=== PATIENT | female | born 1990 | race Caucasian/White ===

== ENCOUNTER → 2024-06-05 | Outpatient (CLI) | payer OTHER, SELFPAY ==
[2024-06-07 07:07] LABS: Chlamydia By Nucleic Acid AMP Negative (Negative); Gonococcus By Nucleic Acid AMP Negative (Negative)
[2024-06-08 10:08] LABS: HPV APTIMA, High Risk Negative (Negative)
== END | disposition home or self-care (01) ==
PROVIDERS: Visit Provider Nurse Practitioner Women's Health
DX: Z12.4 Encounter for screening for malignant neoplasm of cervix (principal); Z11.3 Encounter for screening for infections with a predominantly sexual mode of transmission; Z11.8 Encounter for screening for other infectious and parasitic diseases
CPT/HCPCS: 87491; 87591; 87624; 88175; G0145

== ENCOUNTER 2024-08-01 09:34 | Day surgery (SDC) | payer OTHER, SELFPAY ==
[2024-07-26 14:05] LABS: Hematocrit 39.3 % (37-47); Mean Corp Hgb Conc 33.1 g/dL (32-36); Mean Corpuscular Hgb 26.5 pg (27.0-32.0); Mean Platelet Vol. 11.1 fl (6.2-12.0); Platelet Count 429 K/mm3 (150-450); RBC Distribution Width CV 13.2 % (11.6-14.6); RBC Distribution Width SD 38.1 fl (35.1-43.9); Red Blood Count 4.91 M/mm3 (4.2-5.4); White Blood Count 10.4 K/mm3 (4.4-11.0)
[2024-08-01] VITALS (9 sets, daily range): BP systolic 116–132; BP diastolic 71–88; PULSE 60–80; RESP 16–18; TEMP 36.6–36.8; O2SAT 99–100; BMI 27.9
[2024-08-01 10:06] LABS: Internal QC Validated? YES +Cl - CLEAR BKGD; Pregnancy, Urine Negative Negative
[2024-08-01] MEDS: Lactated Ringers 1,000 ML 15 ML IV (10:18)
--- NOTE | 2024-08-01 10:33 | HP.PCM_ITS ---
History and Physical Date of Admission: 08/01/24 Intake Vital Signs 06/05/2508:43 07/10/2510:29 07/10/2510:30 Height 5 ft 5 in 5 ft 5 in 5 ft 5 in Weight: 174 lb 171 lb 2 oz BMI 28.9 28.5 BP 132/80 H 140/74 H Intake Visit Reasons: Consult for BS Fuel Cell Designer Required: No Is patient in pain?: No Allergies No Known Allergies Allergy (Verified 07/10/24 11:29) Post menopausal: No Patient : No : No PFSH Surgical History S/P appendectomy Status post wisdom tooth extraction Family History Father Myocardial infarction, Onset Age: 50Mother Hypertension Social History Smoking Status: Never smoker alcohol intake: current alcohol intake frequency: a few times a month Alcohol type: beer and wine substance use type: does not use what type of physical activity do you participate in: weight training frequency: 5-6 times per week HPI Consult for BS Details: GRAY TRAN is a 34 year old G0 who presents for discussion about tubal ligation. She states that she does not have any desire to have children and she is tired of taking control. She denies medical problems and has had only one surgery in her abdomen, a laparoscopic appendectomy when she was in 6th grade. History 0 Elective abortions Hx Para Spontaneous abortions Hx # Term Pregnancies Ectopic pregnancies Hx # Pregnancies Multiple births # of living children ROS Const ROS Unobtainable: All systems reviewed & are unremarkable except as noted in H Resp Resp: Reports system reviewed and no additional complaints, except as documented; Denies cough GI GI: Reports as per HPI Psych Psych: Reports system reviewed and no additional complaints, except as document ed Exam Const General: cooperative, healthy appearing, comfortable and no acute distress Resp Effort & Inspection: normal respiratory effort Skin General: no rashes or lesions noted Psych Appearance: grossly normal Speech and Movement: speech and movement normal Coding Level of Care Code Off vis,est,level 4 Diagnoses Sterilization consult Z30.09 Assessment and Plan Assessment and Plan (1) Sterilization consult: Status: Acute Plan: After discussing the patient's diagnosis and treatment plan options, patient wishes to proceed with surgical management. I have discussed with the patient the risks, benefits, and alternatives of the procedure which include but are not limited to risks of anesthesia, bleeding, infection, possible damage to bowel, bladder, or surrounding vasculature which could lead to additional surgery to evaluate any complications. Patient agrees to procedure and wishes to proceed. ACOG/uptodate references given for additional information regarding procedure. plan for laparoscopic bilateral salpingectomy
--- NOTE | 2024-08-01 10:57 | PCM.PRE.AN2 ---
ASA Classification* ASA Classification ASA Classification: 2 Assessment & Plan Anesthesia* Anesthesia Assessment Anesthesia Assessment: Discussed sedation and/or anesthesia options, risks, benefits, and alternatives with patient/parents/legal guardian/POA. Questions invited. The patient/parents/legal guardian/POA seems to understand and agrees to proceed with anesthesia plan. Reviewed the physical assessment, medical history, allergy history and patient home medications list prior to surgery/procedure/anesthetic and documented any changes. Performed airway and anesthesia risk assessments. Anesthesia Type Anesthesia Type: General History Source History Obtained from:: Patient and Chart Anesthesia Focused Assessment* Temperature: 98.1 F Pulse Rate: 80 Blood Pressure: 132/71 Respiratory Rate: 18 Pulse Ox: 100 Oxygen Delivery Method: Room Air Airway Assessment Mouth opens: >3 cm Mallampati Score: II Teeth Condition: Intact Neck Range of motion (ROM): Full ROM Focused Labs Anesthesia Preop lab: CBC WBC 10.4 K/mm3 (4.4-11.0) 07/26/24 13:41 07/26/24 RBC 4.91 M/mm3 (4.2-5.4) 07/26/24 13:41 07/26/24 Hgb 13.0 g/dL (12.0-15.0) 07/26/24 13:41 07/26/24 Hct 39.3 % (37-47) 07/26/24 13:41 07/26/24 Plt Count 429 K/mm3 (150-450) 07/26/24 13:41 07/26/24 CHEMISTRY COAG Urine Test Negative Negative 08/01/24 09:59 08/01/24 Pre-Assessment Diagnosis/Proposed Procedure Planned Operative Procedure(s): (B) Laparoscopic, Salpingectomy Anesthesia History Anesthesia History - kelp or seagrass gatherer: Anesthesia History - kelp or seagrass gatherer Hx Hospitalization No 07/25/24 09:19 Any Problems With Anesthesia No 07/25/24 09:19 Cholinesterase deficiency No 07/25/24 09:19 You/Your Family Experience No 07/25/24 09:19 fever (hyperthermia) with Relationship Recent Exposure to Contagious No 08/01/24 10:13 Disease Does patient have nerve No 07/25/24 09:19 stimulator Patient instructed to have device shut off --Does patient have Pacemaker No 08/01/24 10:13 or ICD? When Was Last Pacemaker Check QUESTION #4 FULL TEXT: You/Your Family Experience fever (hyperthermia) with Anesthesia Last Oral Intake Last Oral intake: Last Oral Intake NPO since 21:00 08/01/24 10:13 Meds taken in AM with sips of No 08/01/24 10:13 water? Meds patient instructed to take am of surgery PONV PONV - kelp or seagrass gatherer: PONV - kelp or seagrass gatherer Female Yes 07/25/24 09:19 HX of Motion Sickness No 07/25/24 09:19 HX of N/V After Surgery No 07/25/24 09:19 Non-Smoker Yes 07/25/24 09:19 Duration of Surgery greater Yes 07/25/24 09:19 than 60 minutes Number of Risk Factors 3 07/25/24 09:19 PONV Score Moderate Risk 07/25/24 09:19 Height & Weight Height & Weight: Anesthesia: Height & Weight Height 5 ft 5 in 08/01/24 10:13 Weight: 76.1 kg 08/01/24 10:13 Body Mass Index (BMI) 27.9 08/01/24 10:13 Respiratory Assessment Respiratory Assessment - kelp or seagrass gatherer: Respiratory Tract Infection Hx - kelp or seagrass gatherer Hx Respiratory Tract Infection No 07/25/24 09:19 STOP Sleep Apnea STOP Sleep Apnea - kelp or seagrass gatherer: STOP Sleep Apnea - kelp or seagrass gatherer Hx Hypertension No 07/25/24 09:19 Hx Sleep Apnea No 07/25/24 09:19 CPAP BIPAP Do you snore loudly (louder No 07/25/24 09:19 than talking or can be heard Do you often feel tired/ No 07/25/24 09:19 fatigued/ sleepy during daytime? Has anyone observed you stop No 07/25/24 09:19 breathing during sleep? STOP Results Negative 07/25/24 09:19 QUESTION #5 FULL TEXT : Do you snore loudly (louder than talking or can be heard through closed doors)? Tobacco Use History Tobacco Use History - kelp or seagrass gatherer: Tobacco Use History - kelp or seagrass gatherer Tobacco Use Smoking Status Never smoker 07/25/24 09:19 Hx Tobacco Use No 07/25/24 09:19 Years Smoking Packs Smoked per Day Smoking Cessation Date was within the last 15 years Hx Smoking Cessation Date Hx Smoking Cessation Counseling Hematologic Medial History Hematologic Hx - kelp or seagrass gatherer: Hematologic Medical Hx - tissue inserter Hx of Blood Transfusion No 07/25/24 09:19 Hx of Transfusion in last 3 No 07/25/24 09:19 Months Date of Last Transfusion (if within last 3 months) Ever experience any problems No 07/25/24 09:19 with transfusion(s)? Specify any problems Hx of Preganancy in last 3 N/A 07/25/24 09:19 Months Nurse Filling Out Transfusion NBUCHER 07/25/24 09:19 & Questions: Date: 07/25/24 07/25/24 09:19 Time: 09:20 07/25/24 09:19 Patient unable to answer at this time (ie. confused, unrespo /Reproduction History /Reproductive History - kelp or seagrass gatherer: /Reproductive Hx- kelp or seagrass gatherer Hx Now No 07/25/24 09:19 Gestational Age (in weeks): EDC: Hx Hx Para Hx Section SAB No 07/25/24 09:19 Active Medications Active Medications: Current Medications Generic Name Dose Route Start Last Admin Trade Name Tony PRN Reason Stop Dose Admin Lactated Ringer's 1,000 mls @ 15 mls/hr 08/01/24 10:00 08/01/24 10:18 IV 15 mls/hr .Q48H WYATT Administration PFSH Medical History Wears contact lenses Non-smoker Home Medications ?Medication ?Instructions ?Recorded ?Last Taken ?Type levonorgestrel-ethinyl estradiol 1 tab PO QDAY #84 tabs 06/05/24 Unknown Rx 0.1 mg-20 mcg tablet (Vienva) Allergy/AdvReac Type Severity Reaction Status Date / Time No Known Allergies Allergy Verified 08/01/24 10:12 Family History Father Myocardial infarction, Onset Age: 50 Mother Hypertension Surgical History S/P appendectomy Status post wisdom tooth extraction Social History Smoking Status: Never smoker alcohol intake: current alcohol intake frequency: a few times a month Alcohol type: beer and wine substance use type: does not use what type of physical activity do you participate in: weight training frequency: 5-6 times per week Review of Systems (Anesthesia) ROS Narrative System reviewed and no additional complaints, except as documented.
--- NOTE | 2024-08-01 11:15 | PCM.DC ---
Discharge Instructions Diet Discharge Diet: No restrictions DC O2, CPAP, BIPAP needs Home O2 Discharge instructions: No Dressing / Incision Discharge Activity: Return to Normal Activity, May Not Drive (for two weeks or while taking narcotic pain medications.), May Shower and May Take a Tub Bath (in 7 days) May resume sexual activity in: 1 week Weight Bearing Status: Full weight bearing Dressing / Incision Call your doctor if you observe: Using more than 1 pad per hour, Shortness of breath, Chest pain and Uncontrolled pain Suture Line Care: Avoid Pulling/Pushing and Avoid Pinching/Bending Remove Dressing in: 1 week (if present) Cleanse incision/area with: Soap & Water and Keep Dressing Clean & Dry Follow Up Care Please Follow Up With: Anny Delong DO When: Call to make an appointment with your doctor for a follow up incision check in 1-2 weeks. Test Results: Test results from this visit will be discussed in further detail at your follow-up appointment, if applicable. Discharge Plan Admission Primary Reason for Your Visit: laparoscopic bilateral salpingectomy Attending Provider: Anny Delong Primary Care Provider: Care Physician,No Primary Instructions Print Language: Singaporean Discharge Orders/Prescriptions Prescriptions: New ibuprofen 800 mg tablet 800 mg PO Q8H PRN (Reason: pain) Qty: 30 0RF oxycodone-acetaminophen [Percocet] 5-325 mg tablet 1 tab PO Q4H PRN (Reason: pain) 7 Days Qty: 10 0RF Discontinued levonorgestrel-ethinyl estrad [Vienva] 0.1-20 mg-mcg tablet 1 tab PO QDAY Qty: 84 4RF Disposition Disposition (needs filled in before D/C Order can be placed): Home, Self Care
--- NOTE | 2024-08-01 11:20 | FALS_PTH ---
PATIENT: GRAY TRAN [place] [facility] [id number] AGE/SX: 34/F ROOM: RE08/01/[address]: Dr. Anny Delong DO : 1990 BED: DIS: 08/01/2024 SPEC #: [id number] RECD: 08/01/24 13:42 STATUS: DENA ELOISE #: [id number] MICHELLE: 08/01/24 11:[address]: Anny Delong DEPT: SURGICAL PATHOLOGY RECD BY: Warren Yin ENTERED: 08/01/24 13:42 SP TYPE: FALL TUBES OTHR DR: Samanta Primary Care Phys Tissues: A - Fallopian tube Procedures: Surgery Specimen Level II HEADER OPERATION: Laparoscopic salpingectomy PRE-OP DIAGNOSIS: Desired sterilization TISSUE SUBMITTED: A- Bilateral fallopian tubes MICROSCOPIC DIAGNOSIS A. Bilateral fallopian tubes, salpingectomy: * Benign fallopian tubes with complete cross sections obtained * Benign paratubal cyst MICROSCOPIC DESCRIPTION Slides are reviewed. GROSS DESCRIPTION A. Received in formalin in a container labeled with the patient's name, date of , and bilateral tubes are 2 unoriented and fimbriated fallopian tubes measuring 6.0 cm in length by 0.7 cm in diameter and 4.7 cm in length by 0.7 cm in diameter. Each display huitron-pink, smooth serosa with unremarkable fimbriated ends. Sectioning of each reveals a pinpoint lumen. Bench Lathe Operator sections:A1. Longer fallopian tubeA2. Deal fallopian tube [facility] 08-01-2024 CPT:93808m1
[2024-08-01] MEDS: Bupivacaine 0.25% 30 ML Vial (12:10)
--- NOTE | 2024-08-01 12:22 | OP.PCM_ITS ---
Multi Select Codes Urinary/Genital Urinary/Genital CPT Codes: 14654 Laproscopic BS/O Operative Report (Standard) Operative Information Date of Procedure: 08/01/24 Pre-Operative Diagnosis: desires permanent sterilization Post-Operative Diagnosis: desires permanent sterilization Surgery/Procedure Performed: laparoscopic bilateral salpingectomy environmental programs manager: No Type of Anesthesia: General RN Documented Start/Stop Times: Operation Date: 08/01/24 11:20 Case Time Into Pre-Op 08/01/24 09:46 Out of Pre-Op 08/01/24 11:27 Anesthesia Start 08/01/24 11:31 Into Room 08/01/24 11:31 Procedure Start 08/01/24 11:50 Procedure End 08/01/24 12:08 Anesthesia End 08/01/24 12:19 Out of Room 08/01/24 12:19 Procedure Start Time: 11:50 Procedure Stop Time: 12:08 Select all DRAINS/GRAFTS/IMPLANTS that apply: None Estimated Blood Loss: 0 Specimen collected: Yes Description of specimen(s) removed: bilateral fallopian tubes Description of surgery: Patient was taken in the operating room and was placed under general anesthesia was prepped and draped in normal sterile fashion in the dorsal lithotomy position. Bladder was drained of clear urine and SCDs were on preoperatively. A single toothed tenaculum was placed on the anterior lip the cervix and a sponge stick was inserted in the posterior aspect of the uterus to elevate the uterus. Attention was then paid to the abdominal portion of the procedure and the umbilicus was elevated with towel clamps and injected with Marcaine and after a 5 mm incision was made and a 5 mm laparoscope was inserted into the abdomen under direct visualization. The Abdomen was insufflated with CO2 gas and the patient was placed in Trendelenburg position. A left lower quadrant 5 mm port and a 5 mm port suprapubically were placed under direct visualization. A suprapubic mini grasper was inserted next. Uterus was well visualized and bilateral fallopian tubes identified and bilateral tubes were elevated and transecting across the mesosalpinx and the attachment to the uterine corpus bilaterally the tubes were removed without complication. Excellent hemostasis was noted. Fallopian tubes were removed through the lower port sites without complication. Liver and upper abdomen were visualized notably within normal l imits and no other gross abnormalities were seen in the abdomen. All instruments removed from the abdomen after gas was desufflated. Port sites were closed with 3-0 Monocryl Steri's and op sites were applied. All instruments removed from the vagina and patient was awoken and taken recovery in stable condition. Surgical Findings: normal uterus, tubes, and ovaries Complications Complications: No Admit VTE Documentation VTE Present on Admission: No VTE Mechan Device Prophylaxis: SCD's VTE Pharm Prophylaxis ordered?: No
--- NOTE | 2024-08-01 12:25 | PCM.POST.ANE ---
Anesthesia: Postop Eval I Current Vital Signs Temperature: 98.2 F Pulse Rate: 80 Blood Pressure: 119/82 Respiratory Rate: 16 Pulse Ox: 100 Oxygen Delivery Method: Room Air Assessment Airway patent: Yes Spontaneous unlabored respirations: Yes Mental status: Awake and Calm nausea: No Vomiting: No Anesthesia Complication: No Fluid Hydration Crystalloid volume administer (ml): 600 Total IV fluid infused: 600 Progress Note Anesthesia document: Postop Eval 1 completed: Yes
--- NOTE | 2024-08-01 16:58 | POSTOPAN2_ITS ---
Anesthesia Postop Eval I Sum Postop Eval Completion status Anesthesia document: Postop Eval 1 completed: Yes Anesthesia Postop Eval I Summary Anesthesia Postop Eval I Summary: Anesthesia Postop Eval I: Assessment Summary Airway patent Yes 08/01/24 12:25 OPERATING ROOM TECH.[email or web address] Spontaneous unlabored Yes 08/01/24 12:25 OPERATING ROOM TECH.GDOTT respirations Mental status Awake,Calm 08/01/24 12:25 OPERATING ROOM TECH.GDOTT nausea No 08/01/24 12:25 OPERATING ROOM TECH.GDOTT Vomiting No 08/01/24 12:25 OPERATING ROOM TECH.GDOTT Anesthesia Postop Eval I: Fluid Summary Crystalloid volume administer 600 08/01/24 12:25 OPERATING ROOM TECH.GDOTT (ml) Colloids volume administered ( ml) Blood Product volume administered (ml) Total IV fluid infused 600 08/01/24 12:25 OPERATING ROOM TECH.GDOTT Anesthesia Postop Eval I: Summary Notes Anesthesia Complication No 08/01/24 12:25 OPERATING ROOM TECH.GDOTT Anesthesia Complication Comment: Post-operative progress note Anesthesia: Postop Eval II Evaluation Mental status: Awake and Calm Pain Level: 2 nausea: No Vomiting: No Complications Anesthesia Complication: No
--- NOTE | 2024-08-01 16:58 | PCM.POSTANE2 ---
Anesthesia Postop Eval I Sum Postop Eval Completion status Anesthesia document: Postop Eval 1 completed: Yes Anesthesia Postop Eval I Summary Anesthesia Postop Eval I Summary: Anesthesia Postop Eval I: Assessment Summary Airway patent Yes 08/01/24 12:25 SPECIAL EDUCATION TUTOR.GDOTT Spontaneous unlabored Yes 08/01/24 12:25 SPECIAL EDUCATION TUTOR.GDOTT respirations Mental status Awake,Calm 08/01/24 12:25 SPECIAL EDUCATION TUTOR.GDOTT nausea No 08/01/24 12:25 SPECIAL EDUCATION TUTOR.GDOTT Vomiting No 08/01/24 12:25 SPECIAL EDUCATION TUTOR.GDOTT Anesthesia Postop Eval I: Fluid Summary Crystalloid volume administer 600 08/01/24 12:25 SPECIAL EDUCATION TUTOR.GDOTT (ml) Colloids volume administered ( ml) Blood Product volume administered (ml) Total IV fluid infused 600 08/01/24 12:25 SPECIAL EDUCATION TUTOR.GDOTT Anesthesia Postop Eval I: Summary Notes Anesthesia Complication No 08/01/24 12:25 SPECIAL EDUCATION TUTOR.GDOTT Anesthesia Complication Comment: Post-operative progress note Anesthesia: Postop Eval II Evaluation Mental status: Awake and Calm Pain Level: 2 nausea: No Vomiting: No Complications Anesthesia Complication: No
== END 2024-08-01 13:47 | disposition home or self-care (01) ==
LOC: SDC 09:38 → AC 09:40
PROVIDERS: Referring Provider Obstetrics & Gynecology; Visit Provider Obstetrics & Gynecology
PROC: (CPT 58661; principal; 2024-08-01 11:05)
DX: Z30.2 Encounter for sterilization (principal); N83.8 Other noninflammatory disorders of ovary, fallopian tube and broad ligament
CPT/HCPCS: 58661; 00840; 36415; 81025; 85027; 86850; 86900; 86901; 88302; J2405